=== PATIENT | female | born 1985 | race Caucasian/White ===

== ENCOUNTER 2018-12-27 10:20 | Inpatient (IN) | payer BC ==
[~2018-12-27] VITALS: Ht 165.2 cm; Wt 135.9 kg
[2018-12-27] VITALS (17 sets, daily range): BP systolic 107–161; BP diastolic 65–95; PULSE 60–90; TEMP 97.8–98.1
--- NOTE | 2018-12-27 10:25 | NUR ---
Patient ambulatory to room 222 with spouse, changed into gown, and FHR/TOCO monitors placed. Patient denies any vaginal bleeding/leaking of fluid/regular contractions. Plan of care discussed. 1040: IV started in right hand, blood obtained and to lab, LR infusing. Assessment completed and consents/ packet gone over and signed. Whiteboard discussed. 1200: Patient ambulatory to OR. 1205: Patient sitting up for spinal and diffuculty tracing FHR due to materbal position. 1207: Patient wedged left and FHR 140-150 bmp.
[2018-12-27] MEDS ORDERED: PRENATAL MVI (10:52)
[2018-12-27 11:23] LABS: BASO % 0.4 % (0.0-2.0); EOS # 0.1 (0.0-0.7); EOS % 0.6 % (0-4.0); GRAN # 8.6 (1.4-6.5); HEMATOCRIT 35.6 % (37.0-47.0); HEMOGLOBIN 11.3 g/dl (12.5-16.0); LYMPH # 1.4 (1.2-3.4); LYMPH % 13.1 % (20.0-51.0); MEAN CELL VOLUME 84 fl (80.0-100.0); MEAN CORPUSCULAR HEMOGLOBIN 27 pg (27.0-31.0); MEAN CORPUSCULAR HGB CONC 32 g/dl (33.0-37.0); MEAN PLATELET VOLUME 10.9 fl (7.4-10.4); MONO # 0.8 (0.1-0.6); MONO % 7.4 % (1.7-9.3); PLATELET COUNT 283 K/mm3 (130-400); RED BLOOD COUNT 4.24 M/mm3 (4.10-5.30); REDCELL DISTRIBUTION WIDTH-CV 14.6 % (11.5-14.5)
[2018-12-28] VITALS: BP 144/86; PULSE 85; TEMP 98.2
[2018-12-28 07:51] VITALS: BP 116/72; PULSE 86; TEMP 97.8
--- NOTE | 2018-12-28 09:42 | NUR ---
Initial visit attempt; Family resting, Curtain [employer] left card of congratulations and God's blessings for the of their daughter and information regarding the availability of spiritual care at our hospital.
[2018-12-28 12:30] VITALS: BP 140/74; PULSE 78; TEMP 98.1
[2018-12-28 16:49] VITALS: BP 150/84; PULSE 78; TEMP 97.1
[2018-12-28 20:45] VITALS: BP 175/96; PULSE 131; TEMP 98.9
[2018-12-28 23:04] VITALS: BP 148/85
[2018-12-29 08:50] VITALS: BP 148/76; PULSE 72; TEMP 98.2
[2018-12-29] MEDS ORDERED: MOTRIN 600600 MG/TAB PO (10:47)
[2018-12-29] MEDS ORDERED: PERCOCET 325 MG1 TA2 PO (10:48)
[2018-12-29 16:20] VITALS: BP 140/85; PULSE 76; TEMP 98.1
== END 2018-12-29 16:22 | disposition home or self-care (01) | DRG 788 ==
LOC: OB 10:20 → LDR 16:14 → OB 12-29 16:22
PROVIDERS: ADMIT Obstetrics & Gynecology
PROC: 10D00Z1 Extraction of Products of Conception, Low, Open Approach (ICD-10-PCS; principal; 2018-12-27)
PROC: 10D07Z5 Extraction of Products of Conception, High Forceps, Via Natural or Artificial Opening (ICD-10-PCS; 2018-12-27)
DX: O34.211 Maternal care for low transverse scar from previous cesarean delivery (principal); Z37.0 Single live birth; O48.0 Post-term pregnancy; O99.89 Other specified diseases and conditions complicating pregnancy, childbirth and the puerperium; N73.6 Female pelvic peritoneal adhesions (postinfective); O36.60X0 Maternal care for excessive fetal growth, unspecified trimester, not applicable or unspecified; O99.214 Obesity complicating childbirth; Z3A.41 41 weeks gestation of pregnancy; R03.0 Elevated blood-pressure reading, without diagnosis of hypertension
CPT/HCPCS: J0690; J1885; J2270; J2370; J2405; J2590; J2765; J7120